=== PATIENT | female | born 1990 | race Caucasian/White ===

== ENCOUNTER 2017-02-03 08:03 | Emergency (ER) | payer OTHER ==
[~2017-02-03] VITALS: Ht 162.5 cm; Wt 77.1 kg
[~2017-02-03 08:03] MED LIST: AMOXICILLIN500 MG PO; ATARAX25 MG PO; AUGMENTIN 875 M1 TAB PO; BENADRYL50 MG PO; DAYPRO600 M1 PO; DIFLUCAN150 MG PO; EPI-PEN1 MG/ML MR; FLEXERIL10 MG PO; KEFLEX500 MG PO; MEDROL DOSEPAK4 MG PO; MOTRIN800 MG PO; PHENERGAN25 MG RC; PREDNISONE20 MG PO; PRENATABS FA1 TAB PO; REGLAN10 MG PO; ZANTAC150 MG PO; ZOFRAN4 MG PO
[2017-02-03 08:24] LABS: BILIRUBIN NEGATIVE (NEGATIVE); BLOOD 1+ (NEGATIVE); CLARITY SL CLOUDY (CLEAR); COLOR YELLOW (YELLOW); GLUCOSE NEGATIVE (NEGATIVE); KETONE NEGATIVE (NEGATIVE); LEUKO ESTERASE 1+ (NEGATIVE); NITRITE NEGATIVE (NEGATIVE); PROTEIN 1+ (NEGATIVE)
[2017-02-03 08:32] LABS: BACTERIA 1+; WBC 41-50 wbc/hpf (0-5)
[2017-02-03 08:33] LABS: URINE REFLEX COMMENT YES (NO)
[2017-02-03 08:41] LABS: BASO % 0.3 % (0.0-1.0); EOS # 0.1 10*3/uL (0.0-0.4); EOS % 0.7 % (1.0-4.0); HEMATOCRIT 37.9 % (37.0-47.0); HEMOGLOBIN 12.5 g/dl (12.0-16.0); IG # 0.1 10*3/uL (0.0-0.1); LYMPH # 2.1 10*3/uL (1.3-4.4); LYMPH % 14.2 % (27.0-41.0); MEAN CELL VOLUME 88.1 fl (81.0-99.0); MEAN CORPUSCULAR HGB 29.1 pg (27.0-31.0); MEAN PLATELET VOLUME 10.3 fl (9.6-12.3); MONO # 1.3 10*3/uL (0.1-1.0); MONO % 8.5 % (3.0-9.0); NEUT # 11.2 10*3/uL (2.3-7.9); NEUT % 75.8 % (47.0-73.0); PLATELET COUNT AUTOMATED 372 10*3/uL (130-400); RED CELL DISTRI WIDTH 13.7 % (0-14.5); WHITE BLOOD COUNT 14.7 10*3/uL (4.8-10.8)
[2017-02-03 08:55] LABS: BUN 13 mg/dl (7-24); CARBON DIOXIDE 27 mmol/L (21-32); CHLORIDE 105 mmol/L (98-107); EST GLOM FILT AFRICAN AMERICAN > 60 ml/min; GLUCOSE 91 mg/dL (65-99); POTASSIUM 3.6 mmol/L (3.5-5.1); SODIUM 143 mmol/L (136-145)
[2017-02-03] MEDS ORDERED: LEVOFLOXACIN500 MG PO (09:29)
[2017-02-03] MEDS ORDERED: VIBRAMYCIN100 MG PO (09:29)
[2017-02-03] MEDS ORDERED: DIFLUCAN150 MG PO (09:30)
== END 2017-02-03 09:39 | disposition home or self-care (01) ==
LOC: ED 08:03
PROVIDERS: Emergency Medicine
DX: N39.0 Urinary tract infection, site not specified (principal); R31.9 Hematuria, unspecified; F17.200 Nicotine dependence, unspecified, uncomplicated; Z88.8 Allergy status to other drugs, medicaments and biological substances

== ENCOUNTER 2017-11-09 03:04 | Emergency (ER) | payer OTHER ==
[~2017-11-09] VITALS: Ht 162.5 cm; Wt 77.1 kg
[~2017-11-09 03:04] MED LIST changes: +LEVOFLOXACIN500 MG PO; +VIBRAMYCIN100 MG PO
[2017-11-09] MEDS ORDERED: ZOFRAN ODT4 MG SL (04:03)
[2017-11-09] MEDS ORDERED: KETOROLAC10 MG PO (04:03)
== END 2017-11-09 04:18 | disposition home or self-care (01) ==
LOC: ED 03:04
DX: B34.9 Viral infection, unspecified (principal); F17.200 Nicotine dependence, unspecified, uncomplicated; Z88.8 Allergy status to other drugs, medicaments and biological substances

== ENCOUNTER 2018-03-25 11:55 | Emergency (ER) | payer OTHER ==
[~2018-03-25] VITALS: Ht 162.5 cm; Wt 77.1 kg
[~2018-03-25 11:55] MED LIST changes: +KETOROLAC10 MG PO; +ZOFRAN ODT4 MG SL
[2018-03-25 12:11] LABS: BILIRUBIN NEGATIVE (NEGATIVE); BLOOD NEGATIVE (NEGATIVE); CLARITY SL CLOUDY (CLEAR); COLOR YELLOW (YELLOW); GLUCOSE NEGATIVE (NEGATIVE); KETONE NEGATIVE (NEGATIVE); LEUKO ESTERASE NEGATIVE (NEGATIVE); NITRITE NEGATIVE (NEGATIVE); SPECIFIC GRAVITY 1.015 (1.005-1.030); UROBILINOGEN 0.2 E.U./dl (0.2-1.0)
[2018-03-25 12:43] LABS: BASO # 0.1 10*3/uL (0.0-0.1); BASO % 0.5 % (0.0-1.0); EOS # 0.2 10*3/uL (0.0-0.4); EOS % 2.1 % (1.0-4.0); HEMOGLOBIN 12.1 g/dl (12.0-16.0); LYMPH # 1.8 10*3/uL (1.3-4.4); LYMPH % 19.6 % (27.0-41.0); MEAN CELL VOLUME 90.5 fl (81.0-99.0); MEAN CORPUSCULAR HGB 28.8 pg (27.0-31.0); MEAN CORPUSCULAR HGB CONC 31.8 g/dl (33.0-37.0); MONO # 0.5 10*3/uL (0.1-1.0); MONO % 5.1 % (3.0-9.0); NEUT # 6.6 10*3/uL (2.3-7.9); NEUT % 71.9 % (47.0-73.0); PLATELET COUNT AUTOMATED 317 10*3/uL (130-400); RED CELL DISTRI WIDTH 13.8 % (0-14.5); WHITE BLOOD COUNT 9.2 10*3/uL (4.8-10.8)
[2018-03-25 12:45] LABS: BACTERIA 1+
[2018-03-25 12:57] LABS: ALKALINE PHOSPHATASE 56 U/L (45-117); BUN 13 mg/dl (7-24); CHLORIDE 110 mmol/L (98-107); CREATININE 0.79 mg/dL (0.55-1.02); POTASSIUM 3.8 mmol/L (3.5-5.1); SGOT/AST 7 IU/L (3-35); SGPT/ALT 12 U/L (12-78); SODIUM 142 mmol/L (136-145); TOTAL PROTEIN 7.1 gm/dL (6.4-8.2)
== END 2018-03-25 13:54 | disposition home or self-care (01) ==
LOC: ED 11:55
PROVIDERS: Internal Medicine
DX: K52.9 Noninfective gastroenteritis and colitis, unspecified (principal); F17.200 Nicotine dependence, unspecified, uncomplicated; Z88.6 Allergy status to analgesic agent

== ENCOUNTER 2018-08-20 15:15 | Emergency (ER) | payer OTHER ==
[~2018-08-20] VITALS: Ht 162.5 cm; Wt 77.1 kg
[2018-08-20 16:11] LABS: BILIRUBIN NEGATIVE (NEGATIVE); BLOOD 1+ (NEGATIVE); CLARITY CLEAR (CLEAR); COLOR YELLOW (YELLOW); GLUCOSE NEGATIVE (NEGATIVE); KETONE NEGATIVE (NEGATIVE); LEUKO ESTERASE NEGATIVE (NEGATIVE); NITRITE NEGATIVE (NEGATIVE); SPECIFIC GRAVITY 1.025 (1.005-1.030); UROBILINOGEN 0.2 E.U./dl (0.2-1.0)
[2018-08-20 16:18] LABS: BACTERIA TRACE; CALCIUM OXALATE CRYSTALS 2+; MUCOUS TRACE; WBC 0-2 wbc/hpf (0-5)
== END 2018-08-20 16:33 | disposition home or self-care (01) ==
LOC: ED 15:15
PROVIDERS: Nurse Practitioner Family
DX: Z11.3 Encounter for screening for infections with a predominantly sexual mode of transmission (principal); Z88.8 Allergy status to other drugs, medicaments and biological substances

== ENCOUNTER 2018-09-16 10:06 | Emergency (ER) | payer OTHER ==
[~2018-09-16] VITALS: Ht 162.5 cm; Wt 79.4 kg
[2018-09-16 10:52] LABS: BASO % 0.5 % (0.0-1.0); EOS # 0.4 10*3/uL (0.0-0.4); EOS % 4.3 % (1.0-4.0); HEMATOCRIT 38.9 % (37.0-47.0); HEMOGLOBIN 12.2 g/dl (12.0-16.0); LYMPH # 2.4 10*3/uL (1.3-4.4); MEAN CORPUSCULAR HGB 28.8 pg (27.0-31.0); MEAN CORPUSCULAR HGB CONC 31.4 g/dl (33.0-37.0); MEAN PLATELET VOLUME 10.7 fl (9.6-12.3); MONO # 0.6 10*3/uL (0.1-1.0); MONO % 7.5 % (3.0-9.0); NEUT # 4.7 10*3/uL (2.3-7.9); NEUT % 58.1 % (47.0-73.0); PLATELET COUNT AUTOMATED 283 10*3/uL (130-400); RED BLOOD COUNT 4.23 10*6/uL (4.10-5.10); RED CELL DISTRI WIDTH 13.8 % (0-14.5); WHITE BLOOD COUNT 8.1 10*3/uL (4.8-10.8)
[2018-09-16 11:09] LABS: ALBUMIN 3.3 gm/dl (3.1-4.5); ALKALINE PHOSPHATASE 65 U/L (45-117); BUN 17 mg/dl (7-24); CHLORIDE 111 mmol/L (98-107); CREATININE 0.77 mg/dL (0.55-1.02); SGOT/AST 10 IU/L (3-35); SGPT/ALT 12 U/L (12-78); SODIUM 140 mmol/L (136-145); TOTAL PROTEIN 6.6 gm/dL (6.4-8.2)
[2018-09-16 11:14] LABS: BETA-HCG, QUANT < 1.0 mIU/mL (1-3)
[2018-09-16] MEDS ORDERED: CYCLOBENZAPRINE10 MG PO (13:01)
[2018-09-16] MEDS ORDERED: PREDNISONE50 MG PO (13:01)
== END 2018-09-16 13:17 | disposition home or self-care (01) ==
LOC: ED 10:06
PROVIDERS: Emergency Medicine
DX: S16.1XXA Strain of muscle, fascia and tendon at neck level, initial encounter (principal); R51 Headache; M25.511 Pain in right shoulder; Z88.8 Allergy status to other drugs, medicaments and biological substances; X58.XXXA Exposure to other specified factors, initial encounter; Y93.89 Activity, other specified; Y92.89 Other specified places as the place of occurrence of the external cause; Y99.8 Other external cause status

== ENCOUNTER 2019-04-16 13:49 | Emergency (ER) | payer OTHER ==
[~2019-04-16] VITALS: Wt 86.2 kg
[~2019-04-16 13:49] MED LIST changes: +CYCLOBENZAPRINE10 MG PO; +PREDNISONE50 MG PO
[2019-04-16] MEDS ORDERED: CEPHALEXIN500 M1 PO (14:39)
== END 2019-04-16 14:42 | disposition home or self-care (01) ==
LOC: ED 13:49
DX: L72.9 Follicular cyst of the skin and subcutaneous tissue, unspecified (principal); Z88.8 Allergy status to other drugs, medicaments and biological substances

== ENCOUNTER 2019-07-13 11:30 | Emergency (ER) | payer OTHER ==
[~2019-07-13] VITALS: Ht 165.1 cm; Wt 86.2 kg
[~2019-07-13 11:30] MED LIST changes: +CEPHALEXIN500 M1 PO
[2019-07-15 22:07] LABS: GONOCOCCUS BY NAA Negative (Negative)
== END 2019-07-13 11:59 | disposition home or self-care (01) ==
LOC: ED 11:30
PROVIDERS: Nurse Practitioner Family
DX: Z11.3 Encounter for screening for infections with a predominantly sexual mode of transmission (principal); Z88.6 Allergy status to analgesic agent

== ENCOUNTER 2019-11-26 15:53 | Emergency (ER) | payer OTHER ==
[~2019-11-26] VITALS: Ht 165.1 cm; Wt 90.7 kg
[2019-11-26 17:16] LABS: BILIRUBIN NEGATIVE (NEGATIVE); CLARITY CLOUDY (CLEAR); COLOR YELLOW (YELLOW); GLUCOSE NEGATIVE (NEGATIVE); KETONE NEGATIVE (NEGATIVE)
[2019-11-26 17:17] LABS: BLOOD TRACE-INTACT (NEGATIVE); LEUKO ESTERASE 2+ (NEGATIVE); NITRITE NEGATIVE (NEGATIVE); UROBILINOGEN 0.2 E.U./dl (0.2-1.0)
[2019-11-26 17:18] LABS: BACTERIA 3+; WBC 31-40 wbc/hpf (0-5)
[2019-11-26] MEDS ORDERED: CEFUROXIME AXE500 MG PO (17:24)
[2019-12-01 14:51] LABS: GONOCOCCUS BY NAA Positive (Negative)
== END 2019-11-26 17:30 | disposition home or self-care (01) ==
LOC: ED 15:53
PROVIDERS: Nurse Practitioner Family
DX: N39.0 Urinary tract infection, site not specified (principal); Z20.2 Contact with and (suspected) exposure to infections with a predominantly sexual mode of transmission; Z88.8 Allergy status to other drugs, medicaments and biological substances

== ENCOUNTER 2020-09-17 07:50 | Emergency (ER) | payer OTHER ==
[~2020-09-17 07:50] MED LIST changes: +CEFUROXIME AXE500 MG PO
[2020-09-17] MEDS ORDERED: KEFLEX500 M1 PO (08:20)
[2020-09-17] MEDS ORDERED: Motrin,Rufen800 MG PO (08:20)
== END 2020-09-17 08:33 | disposition home or self-care (01) ==
LOC: ED 07:50
DX: L72.8 Other follicular cysts of the skin and subcutaneous tissue (principal); Z88.8 Allergy status to other drugs, medicaments and biological substances; Z79.899 Other long term (current) drug therapy

== ENCOUNTER 2021-03-27 19:18 | Emergency (ER) | payer OTHER ==
[~2021-03-27] VITALS: Ht 165.1 cm; Wt 81.6 kg
[~2021-03-27 19:18] MED LIST changes: +KEFLEX500 M1 PO; +Motrin,Rufen800 MG PO
== END 2021-03-27 23:25 | disposition home or self-care (01) ==
LOC: ED 19:18
DX: S91.312A Laceration without foreign body, left foot, initial encounter (principal); F17.200 Nicotine dependence, unspecified, uncomplicated; Z88.6 Allergy status to analgesic agent; Z79.2 Long term (current) use of antibiotics; Z79.899 Other long term (current) drug therapy; W23.0XXA Caught, crushed, jammed, or pinched between moving objects, initial encounter; Y93.89 Activity, other specified; Y92.89 Other specified places as the place of occurrence of the external cause; Y99.8 Other external cause status

== ENCOUNTER → 2023-11-01 | Outpatient (CLI) | payer OTHER ==
[2023-11-01 10:04] LABS: BASO % 0.5 % (0.0-1.0); EOS # 0.4 10*3/uL (0.0-0.4); EOS % 5.9 % (1.0-4.0); HEMATOCRIT 38.4 % (37.0-47.0); LYMPH # 1.9 10*3/uL (1.3-4.4); LYMPH % 30.1 % (27.0-41.0); MEAN CELL VOLUME 94.6 fl (81.0-99.0); MEAN CORPUSCULAR HGB 30.3 pg (27.0-31.0); MEAN PLATELET VOLUME 11.2 fl (9.6-12.3); MONO # 0.5 10*3/uL (0.1-1.0); MONO % 8.3 % (3.0-9.0); NEUT # 3.4 10*3/uL (2.3-7.9); NEUT % 54.7 % (47.0-73.0); PLATELET COUNT AUTOMATED 282 10*3/uL (130-400); RED BLOOD COUNT 4.06 10*6/uL (4.10-5.10); RED CELL DISTRI WIDTH 13.2 % (0-14.5); WHITE BLOOD COUNT 6.3 10*3/uL (4.8-10.8)
[2023-11-01 10:38] LABS: ALKALINE PHOSPHATASE 38 U/L (46-116); BUN 13 mg/dl (9-23); CHLORIDE 110 mmol/L (98-107); CHOLESTEROL 130 mg/dL (<200); LDL CHOLESTEROL 67 mg/dL (9-159); POTASSIUM 4.1 mmol/L (3.4-5.1); SGPT/ALT < 7 U/L (5-49); TOTAL PROTEIN 6.3 gm/dL (6.0-8.0); TRIGLYCERIDES 38 mg/dl (<150)
== END | disposition home or self-care (01) ==
LOC: LAB 08:51
PROVIDERS: ATTEND Nurse Practitioner Family
DX: Z13.29 Encounter for screening for other suspected endocrine disorder (principal); Z13.0 Encounter for screening for diseases of the blood and blood-forming organs and certain disorders involving the immune mechanism; Z13.220 Encounter for screening for lipoid disorders; Z13.228 Encounter for screening for other metabolic disorders